=== PATIENT | female | born 1990 | race Caucasian/White ===

== ENCOUNTER 2017-01-28 16:01 | Emergency (ER) | payer OTHER ==
[~2017-01-28] VITALS: Ht 154.9 cm; Wt 60.0 kg
[~2017-01-28 16:01] MED LIST: Ambien PO; BUTALB-ACETAMI1 EAC2 PO; DOXYCYCLINE HY100 MG PO; EFFEXOR XR150 MG PO; EFFEXOR75 MG PO; ENDOCET 5-3251 EACH PO; EXCEDRIN MIGRA1 EAC3 PO; FIORCET; FLAGYL500 MG PO; FLEXERIL10 MG PO; FLOMAX0.4 MG PO; Feosol PO; IBUPROFEN800 MG PO; IRON325 MG PO; LAMICTAL100 MG PO; LaMICtal PO; MOBIC15 MG PO; MORGIDOX100 MG PO; MOTRIN800 MG PO; Motrin PO; NAPROXEN500 MG PO; NATALCARE RX1 TABLET PO; NORCO 5/3251 TABLET PO; Normodyne,Trandate PO; OXCARBAZEPINE150 MG PO; PERCOCET 5/31 TABLET PO; PHENERGAN-CODE120 ML PO; PRENATAL + DHA1 EAC1 PO; PRENATAL TABLE1 EAC3 PO; PROzac PO; REGLAN10 MG PO; SEROQUEL XR300 MG PO; Tylenol Extra Streng PO; VALIUM5 MG PO; ZANTAC150 MG PO; ZITHROMAX Z-PA250 MG PO; ZOFRAN ODT4 MG PO; ZOFRAN4 MG PO
[2017-01-28] MEDS ORDERED: KEFLEX500 MG PO (17:44)
[2017-01-28] MEDS ORDERED: ULTRAM50 MG PO (18:09)
[2017-01-28 18:19] VITALS: BP 122/85
[2017-01-29] MEDS ORDERED: NORCO 7.5/321 TABLET PO (16:38)
[2017-01-29] MEDS ORDERED: BACTRIM,SEPT1 TABLET PO (16:38)
[2017-01-29] MEDS ORDERED: MOTRIN800 MG PO (16:38)
== END 2017-01-28 18:29 | disposition home or self-care (01) ==
LOC: EME 16:01
DX: S91.312A Laceration without foreign body, left foot, initial encounter (principal); W22.8XXA Striking against or struck by other objects, initial encounter; Z23 Encounter for immunization; Z72.0 Tobacco use
CPT/HCPCS: 73630; 99281; 99284

== ENCOUNTER 2017-01-29 15:15 | Emergency (ER) | payer OTHER ==
[~2017-01-29] VITALS: Ht 154.9 cm; Wt 63.3 kg
[~2017-01-29 15:15] MED LIST changes: +KEFLEX500 MG PO; +ULTRAM50 MG PO
[2017-01-29] MEDS ORDERED: BACTRIM,SEPT1 TABLET PO (16:38)
[2017-01-29] MEDS ORDERED: NORCO 7.5/321 TABLET PO (16:38)
[2017-01-29] MEDS ORDERED: MOTRIN800 MG PO (16:38)
[2017-01-29 17:12] VITALS: BP 151/91
== END 2017-01-29 17:14 | disposition home or self-care (01) ==
LOC: EME 15:15
DX: S91.312D Laceration without foreign body, left foot, subsequent encounter (principal); L08.9 Local infection of the skin and subcutaneous tissue, unspecified; F17.200 Nicotine dependence, unspecified, uncomplicated
CPT/HCPCS: 99281; 99284

== ENCOUNTER 2017-09-10 07:14 | Emergency (ER) | payer OTHER ==
[~2017-09-10] VITALS: Ht 154.9 cm; Wt 56.0 kg
[~2017-09-10 07:14] MED LIST changes: +BACTRIM,SEPT1 TABLET PO; +NORCO 7.5/321 TABLET PO
[2017-09-10 07:56] LABS: HEMATOCRIT 33.5 % (36.0-46.0); HEMOGLOBIN 11.4 G/DL (11.9-15.5); MCH 30.4 PG (29.0-34.0); MCV 89.3 FL (83-99); PLATELET COUNT 357 K/uL (156-360); RBC DIS.WIDTH-CV 12.9 % (11.8-14.6); RBC DIS.WIDTH-SD 41.9 % (39-53); RED BLOOD COUNT 3.75 M/uL (3.80-5.20); WHITE BLOOD COUNT 11.4 K/uL (4.1-10.2)
[2017-09-10 08:03] LABS: ALBUMIN 4.3 g/dL (3.2-4.8); CHLORIDE 110 mEq/L (99-109); POTASSIUM 4.1 mEq/L (3.7-5.4); SODIUM 138 mEq/L (136-147)
[2017-09-10 08:06] LABS: GLUCOSE 97 mg/dL (70-99); TOTAL PROTEIN 7.2 g/dL (6.4-8.3)
[2017-09-10 08:08] LABS: TOTAL BILIRUBIN 0.2 mg/dL (0.0-1.0)
[2017-09-10 08:09] LABS: ALKALINE PHOSPHATASE 75 IU/L (3-129)
[2017-09-10 08:10] LABS: CREATININE 0.7 mg/dL (0.6-1.3); GFR ESTIMATE (CALCULATED) > 59 mL/min/
[2017-09-10 08:11] LABS: AST (GOT) 24 IU/L (2-34); UREA NITROGEN (BUN) 9 mg/dL (9-23)
[2017-09-10 08:12] LABS: APPEARANCE CLEAR ((CLEAR)); BILIRUBIN NEGATIVE; BLOOD NEGATIVE; COLOR YELLOW ((YELLOW)); GLUCOSE (STRIP) NEGATIVE; KETONES NEGATIVE; LEUKOCYTES NEGATIVE; NITRITE NEGATIVE; PROTEIN (STRIP) 100; SPECIFIC GRAVITY 1.018 (1.000-1.030); UROBILINOGEN 0.2 MG/DL (0.2-1.0)
[2017-09-10 08:12] LABS: ALT (GPT) 18 IU/L (3-49)
[2017-09-10 08:13] LABS: CREATINE KINASE 100 IU/L (1-294); LIPASE 21 U/L (1.0-51.0)
[2017-09-10 08:17] LABS: BACTERIA NONE SEEN /HPF; EPITHELIAL CELLS RARE /HPF; MUCUS TRACE /LPF; RED BLOOD CELLS 0-5 /HPF (0-5); WHITE BLOOD CELLS 0-5 /HPF (0-5)
[2017-09-10 08:19] LABS: QUANTITATIVE HCG < 4.0 MIU/ML
[2017-09-10 08:30] LABS: AMPHETAMINE NEGATIVE (500 ng/mL); BARBITURATES NEGATIVE (200 ng/mL); BENZODIAZEPINES NEGATIVE (150 ng/mL); BUPRENORPHINE NEGATIVE (10 ng/mL); COCAINE NEGATIVE (150 ng/mL); METHADONE NEGATIVE (200 ng/mL); METHAMPHETAMINE NEGATIVE (500 ng/mL); OPIATES (MORPHINE) NEGATIVE (100 ng/mL); OXYCODONE NEGATIVE (100 ng/mL); PHENCYCLIDINE NEGATIVE (25 ng/mL); PROPOXYPHENE NEGATIVE (300 ng/mL); THC CANNABINOIDS PRESUMPTIVE POSITIVE (50 ng/mL); TRICYCLIC ANTIDEPRESSANTS NEGATIVE (300 ng/mL)
[2017-09-10] MEDS ORDERED: ZOFRAN ODT4 MG PO (09:49)
[2017-09-10] MEDS ORDERED: FIORICET 50-301 EAC1 PO (09:49)
[2017-09-10] MEDS ORDERED: BENTYL10 MG PO (09:52)
[2017-09-10 11:39] VITALS: BP 117/84
== END 2017-09-10 11:46 | disposition home or self-care (01) ==
LOC: EME 07:14
PROVIDERS: Nurse Practitioner Family
DX: R51 Headache (principal); R10.9 Unspecified abdominal pain; J45.909 Unspecified asthma, uncomplicated; I10 Essential (primary) hypertension; F41.9 Anxiety disorder, unspecified; M41.9 Scoliosis, unspecified; F17.200 Nicotine dependence, unspecified, uncomplicated
CPT/HCPCS: 80053; 81003; 82550; 83690; 84702; 84999; 85027; 99281; 99285; J1200; J1885; J2765; J7030

== ENCOUNTER 2017-12-14 17:23 | Emergency (ER) | payer OTHER ==
[~2017-12-14] VITALS: Ht 154.9 cm; Wt 55.5 kg
[~2017-12-14 17:23] MED LIST changes: +BENTYL10 MG PO; +FIORICET 50-301 EAC1 PO
[2017-12-14 18:20] VITALS: BP 132/95
== END 2017-12-14 18:23 | disposition home or self-care (01) ==
LOC: EME 17:23
DX: R51 Headache (principal); R11.2 Nausea with vomiting, unspecified; G40.909 Epilepsy, unspecified, not intractable, without status epilepticus; J45.909 Unspecified asthma, uncomplicated; I10 Essential (primary) hypertension; F41.9 Anxiety disorder, unspecified; F31.9 Bipolar disorder, unspecified; M41.9 Scoliosis, unspecified; F17.200 Nicotine dependence, unspecified, uncomplicated
CPT/HCPCS: 81003; 99281; 99284; J1885; Q0164

== ENCOUNTER 2017-12-16 06:46 | Emergency (ER) | payer OTHER ==
[~2017-12-16] VITALS: Ht 154.9 cm; Wt 55.1 kg
[2017-12-16 07:52] LABS: BASOPHIL (%) 0.3 % (0-1); EOSINOPHIL (%) 2.5 % (0-5); EOSINOPHIL COUNT 0.2 K/uL (0-0.3); HEMATOCRIT 31.9 % (36.0-46.0); HEMOGLOBIN 10.9 G/DL (11.9-15.5); IMMATURE GRANULOCYTE (%) 0.1 % (0.0-0.7); LYMPHOCYTE COUNT 1.4 K/uL (1.0-2.8); MCH 30.3 PG (29.0-34.0); MCHC 34.2 G/DL (30.0-36.0); MCV 88.6 FL (83-99); MONOCYTE (%) 4.4 % (3-12); MONOCYTE COUNT 0.3 K/uL (0-0.8); NEUTROPHIL (%) 72.7 % (45-76); NEUTROPHIL COUNT 4.9 K/uL (1.8-6.4); PLATELET COUNT 323 K/uL (156-360); RBC DIS.WIDTH-CV 12.8 % (11.8-14.6); RBC DIS.WIDTH-SD 42.1 % (39-53); WHITE BLOOD COUNT 6.8 K/uL (4.1-10.2)
[2017-12-16 08:32] LABS: CHLORIDE 111 mEq/L (99-109); POTASSIUM 4.3 mEq/L (3.7-5.4); SODIUM 138 mEq/L (136-147)
[2017-12-16 08:34] LABS: GLUCOSE 95 mg/dL (70-99)
[2017-12-16 08:38] LABS: CREATININE 0.8 mg/dL (0.6-1.3); GFR ESTIMATE (CALCULATED) > 59 mL/min/
[2017-12-16 08:39] LABS: UREA NITROGEN (BUN) 9 mg/dL (9-23)
[2017-12-16 10:07] VITALS: BP 107/53
[2017-12-16] MEDS ORDERED: KEPPRA500 MG PO (18:45)
== END 2017-12-16 10:14 | disposition home or self-care (01) ==
LOC: EME → EDBD 06:46 → EME 06:46
PROVIDERS: Emergency Medicine
DX: G40.909 Epilepsy, unspecified, not intractable, without status epilepticus (principal); F41.9 Anxiety disorder, unspecified; I10 Essential (primary) hypertension; J45.909 Unspecified asthma, uncomplicated; M41.9 Scoliosis, unspecified; F17.200 Nicotine dependence, unspecified, uncomplicated
CPT/HCPCS: 80048; 85025; 99281; 99284

== ENCOUNTER 2017-12-16 14:53 | Emergency (ER) | payer OTHER ==
[~2017-12-16] VITALS: Ht 154.9 cm; Wt 127.0 kg
[2017-12-16 15:56] LABS: HEMATOCRIT 35.1 % (36.0-46.0); HEMOGLOBIN 12.5 G/DL (11.9-15.5); MCH 31.4 PG (29.0-34.0); MCHC 35.6 G/DL (30.0-36.0); MCV 88.2 FL (83-99); PLATELET COUNT 367 K/uL (156-360); RBC DIS.WIDTH-CV 12.9 % (11.8-14.6); RBC DIS.WIDTH-SD 42.1 % (39-53); RED BLOOD COUNT 3.98 M/uL (3.80-5.20); WHITE BLOOD COUNT 17.8 K/uL (4.1-10.2)
[2017-12-16 16:04] LABS: ALBUMIN 4.9 g/dL (3.2-4.8)
[2017-12-16 16:05] LABS: CHLORIDE 113 mEq/L (99-109); POTASSIUM 4.4 mEq/L (3.7-5.4); SODIUM 140 mEq/L (136-147)
[2017-12-16 16:07] LABS: GLUCOSE 103 mg/dL (70-99); TOTAL PROTEIN 8.4 g/dL (6.4-8.3)
[2017-12-16 16:09] LABS: TOTAL BILIRUBIN 0.5 mg/dL (0.0-1.0)
[2017-12-16 16:10] LABS: ALKALINE PHOSPHATASE 84 IU/L (3-129)
[2017-12-16 16:11] LABS: CREATININE 0.8 mg/dL (0.6-1.3); GFR ESTIMATE (CALCULATED) > 59 mL/min/
[2017-12-16 16:12] LABS: AST (GOT) 20 IU/L (2-34); UREA NITROGEN (BUN) 8 mg/dL (9-23)
[2017-12-16 16:14] LABS: ALT (GPT) 17 IU/L (3-49)
[2017-12-16 16:19] LABS: QUANTITATIVE HCG < 4.0 MIU/ML
[2017-12-16] MEDS ORDERED: KEPPRA500 MG PO (18:45)
[2017-12-16 19:24] VITALS: BP 117/80
== END 2017-12-16 19:27 | disposition home or self-care (01) ==
LOC: EME 14:53 → ENRESERV 17:00 → CANRESERV 17:00 → EME 19:27
PROVIDERS: Physician Assistant Medical
DX: G40.909 Epilepsy, unspecified, not intractable, without status epilepticus (principal); G43.909 Migraine, unspecified, not intractable, without status migrainosus; J45.909 Unspecified asthma, uncomplicated; I10 Essential (primary) hypertension; F41.9 Anxiety disorder, unspecified; M41.9 Scoliosis, unspecified; F31.9 Bipolar disorder, unspecified; F17.200 Nicotine dependence, unspecified, uncomplicated
CPT/HCPCS: 80053; 84702; 85027; 99281; 99285; J0780; J1200; J1953; J7030; J7050

== ENCOUNTER 2018-01-06 08:33 | Emergency (ER) | payer OTHER ==
[~2018-01-06] VITALS: Ht 154.9 cm; Wt 56.6 kg
[~2018-01-06 08:33] MED LIST changes: +KEPPRA500 MG PO
[2018-01-06 09:18] LABS: BASOPHIL (%) 0.7 % (0-1); BASOPHIL COUNT 0.1 K/uL (0-0.1); EOSINOPHIL (%) 3.4 % (0-5); EOSINOPHIL COUNT 0.3 K/uL (0-0.3); HEMATOCRIT 33.6 % (36.0-46.0); HEMOGLOBIN 11.5 G/DL (11.9-15.5); IMMATURE GRANULOCYTE (%) 0.2 % (0.0-0.7); LYMPHOCYTE (%) 31.1 % (15-42); LYMPHOCYTE COUNT 2.7 K/uL (1.0-2.8); MCH 30.9 PG (29.0-34.0); MCHC 34.2 G/DL (30.0-36.0); MCV 90.3 FL (83-99); MONOCYTE (%) 3.2 % (3-12); MONOCYTE COUNT 0.3 K/uL (0-0.8); NEUTROPHIL (%) 61.4 % (45-76); NEUTROPHIL COUNT 5.4 K/uL (1.8-6.4); PLATELET COUNT 324 K/uL (156-360); RBC DIS.WIDTH-CV 13.1 % (11.8-14.6); RBC DIS.WIDTH-SD 43.2 % (39-53); RED BLOOD COUNT 3.72 M/uL (3.80-5.20); WHITE BLOOD COUNT 8.8 K/uL (4.1-10.2)
[2018-01-06 09:27] LABS: CHLORIDE 111 mEq/L (99-109); POTASSIUM 4.4 mEq/L (3.7-5.4); SODIUM 139 mEq/L (136-147)
[2018-01-06 09:29] LABS: GLUCOSE 91 mg/dL (70-99)
[2018-01-06 09:33] LABS: CREATININE 0.7 mg/dL (0.6-1.3); GFR ESTIMATE (CALCULATED) > 59 mL/min/
[2018-01-06 09:34] LABS: UREA NITROGEN (BUN) 10 mg/dL (9-23)
[2018-01-06 10:23] VITALS: BP 121/68
== END 2018-01-06 10:33 | disposition home or self-care (01) ==
LOC: EME 08:33
PROVIDERS: Emergency Medicine
DX: R56.9 Unspecified convulsions (principal); I10 Essential (primary) hypertension; J45.909 Unspecified asthma, uncomplicated; M41.9 Scoliosis, unspecified; G43.909 Migraine, unspecified, not intractable, without status migrainosus; F41.9 Anxiety disorder, unspecified; F31.9 Bipolar disorder, unspecified; F17.200 Nicotine dependence, unspecified, uncomplicated
CPT/HCPCS: 80048; 85025; 99281; 99285

== ENCOUNTER 2018-02-06 11:49 | Emergency (ER) | payer OTHER ==
[~2018-02-06] VITALS: Ht 154.9 cm; Wt 53.0 kg
[2018-02-06 12:43] LABS: HEMATOCRIT 33.7 % (36.0-46.0); HEMOGLOBIN 11.5 G/DL (11.9-15.5); MCH 30.6 PG (29.0-34.0); MCHC 34.1 G/DL (30.0-36.0); MCV 89.6 FL (83-99); PLATELET COUNT 306 K/uL (156-360); RBC DIS.WIDTH-CV 12.8 % (11.8-14.6); RBC DIS.WIDTH-SD 41.9 % (39-53); RED BLOOD COUNT 3.76 M/uL (3.80-5.20); WHITE BLOOD COUNT 6.6 K/uL (4.1-10.2)
[2018-02-06 12:54] LABS: ALBUMIN 4.4 g/dL (3.2-4.8); CHLORIDE 112 mEq/L (99-109); POTASSIUM 4.1 mEq/L (3.7-5.4); SODIUM 142 mEq/L (136-147)
[2018-02-06 12:57] LABS: GLUCOSE 98 mg/dL (70-99); TOTAL PROTEIN 7.3 g/dL (6.4-8.3)
[2018-02-06 12:58] LABS: TOTAL BILIRUBIN 0.3 mg/dL (0.0-1.0)
[2018-02-06 13:00] LABS: ALKALINE PHOSPHATASE 80 IU/L (3-129); CREATININE 0.8 mg/dL (0.6-1.3); GFR ESTIMATE (CALCULATED) > 59 mL/min/
[2018-02-06 13:01] LABS: UREA NITROGEN (BUN) 8 mg/dL (9-23)
[2018-02-06 13:02] LABS: AST (GOT) 16 IU/L (2-34)
[2018-02-06 13:03] LABS: ALT (GPT) 14 IU/L (3-49)
[2018-02-06 13:09] LABS: QUANTITATIVE HCG < 4.0 MIU/ML
[2018-02-06 13:42] LABS: APPEARANCE CLOUDY ((CLEAR)); BILIRUBIN NEGATIVE; BLOOD NEGATIVE; COLOR YELLOW ((YELLOW)); GLUCOSE (STRIP) NEGATIVE; KETONES NEGATIVE; LEUKOCYTES TRACE; NITRITE NEGATIVE; PROTEIN (STRIP) NEGATIVE; SPECIFIC GRAVITY 1.016 (1.000-1.030); UROBILINOGEN 0.2 MG/DL (0.2-1.0)
[2018-02-06 13:43] LABS: LIPASE 18 U/L (1.0-51.0)
[2018-02-06 13:54] LABS: BACTERIA NONE SEEN /HPF; EPITHELIAL CELLS RARE /HPF; MUCUS TRACE /LPF; RED BLOOD CELLS 0-5 /HPF (0-5); UCUL ADDED? NO; WHITE BLOOD CELLS 0-5 /HPF (0-5)
[2018-02-06] MEDS ORDERED: MOTRIN600 MG PO (16:01)
[2018-02-06] MEDS ORDERED: ZOFRAN4 MG PO (16:01)
[2018-02-06 16:54] VITALS: BP 148/76
== END 2018-02-06 16:58 | disposition home or self-care (01) ==
LOC: EME 11:49
DX: R10.31 Right lower quadrant pain (principal); N83.201 Unspecified ovarian cyst, right side; K76.0 Fatty (change of) liver, not elsewhere classified; R11.2 Nausea with vomiting, unspecified; F17.200 Nicotine dependence, unspecified, uncomplicated
CPT/HCPCS: 74177; 80053; 81003; 83690; 84702; 85027; 99281; 99284; J0500; J1885; J2405; J7030

== ENCOUNTER 2018-02-21 00:19 | Inpatient (IN) | payer OTHER ==
[~2018-02-21] VITALS: Ht 154.9 cm; Wt 56.3 kg
[~2018-02-21 00:19] MED LIST changes: +MOTRIN600 MG PO
[2018-02-21 02:10] LABS: HEMATOCRIT 36.2 % (36.0-46.0); HEMOGLOBIN 12.5 G/DL (11.9-15.5); MCH 31.1 PG (29.0-34.0); MCHC 34.5 G/DL (30.0-36.0); PLATELET COUNT 341 K/uL (156-360); RBC DIS.WIDTH-CV 12.6 % (11.8-14.6); RBC DIS.WIDTH-SD 41.7 % (39-53); RED BLOOD COUNT 4.02 M/uL (3.80-5.20); WHITE BLOOD COUNT 8.2 K/uL (4.1-10.2)
[2018-02-21 02:18] LABS: CHLORIDE 109 mEq/L (99-109); SODIUM 142 mEq/L (136-147)
[2018-02-21 02:20] LABS: GLUCOSE 76 mg/dL (70-99)
[2018-02-21 02:23] LABS: SERUM ETHYL ALCOHOL < 10 mg/dL
[2018-02-21 02:24] LABS: CREATININE 0.9 mg/dL (0.6-1.3); GFR ESTIMATE (CALCULATED) > 59 mL/min/
[2018-02-21 02:25] LABS: UREA NITROGEN (BUN) 10 mg/dL (9-23)
[2018-02-21 04:30] LABS: AMPHETAMINE NEGATIVE (500 ng/mL); BARBITURATES NEGATIVE (200 ng/mL); BENZODIAZEPINES NEGATIVE (150 ng/mL); BUPRENORPHINE NEGATIVE (10 ng/mL); COCAINE NEGATIVE (150 ng/mL); METHADONE NEGATIVE (200 ng/mL); METHAMPHETAMINE NEGATIVE (500 ng/mL); OPIATES (MORPHINE) NEGATIVE (100 ng/mL); OXYCODONE NEGATIVE (100 ng/mL); PHENCYCLIDINE NEGATIVE (25 ng/mL); PROPOXYPHENE NEGATIVE (300 ng/mL); THC CANNABINOIDS PRESUMPTIVE POSITIVE (50 ng/mL); TRICYCLIC ANTIDEPRESSANTS NEGATIVE (300 ng/mL)
[2018-02-21] MEDS ORDERED: PROMETHAZINE HC25 M1 PO (05:26)
[2018-02-21] MEDS ORDERED: TOPIRAMATE25 MG PO (05:28)
[2018-02-21 06:40] VITALS: BP 107/78
[2018-02-21 10:57] VITALS: BP 103/66
[2018-02-21 14:57] VITALS: BP 107/64
[2018-02-21 20:00] VITALS: BP 120/83
[2018-02-22] VITALS: BP 127/61
[2018-02-22 04:00] VITALS: BP 102/76
[2018-02-22 07:08] VITALS: BP 109/68
[2018-02-22 11:04] VITALS: BP 139/78
[2018-02-22 15:03] VITALS: BP 164/91
[2018-02-22] MEDS ORDERED: VIMPAT150 MG PO (15:13)
[2018-02-22] MEDS ORDERED: KEPPRA500 MG PO (15:52)
== END 2018-02-22 15:51 | disposition home or self-care (01) | DRG 101 ==
LOC: EME 00:19 → 5SOUTH 04:46 → EDOF 04:46 → ENRESERV 04:49 → 5SOUTH 06:15
PROVIDERS: Emergency Medicine
DX: G40.419 Other generalized epilepsy and epileptic syndromes, intractable, without status epilepticus (principal); Z91.14 Patient's other noncompliance with medication regimen; F31.9 Bipolar disorder, unspecified; M41.9 Scoliosis, unspecified; J45.909 Unspecified asthma, uncomplicated; I10 Essential (primary) hypertension; G43.909 Migraine, unspecified, not intractable, without status migrainosus; F41.9 Anxiety disorder, unspecified; F17.200 Nicotine dependence, unspecified, uncomplicated; F12.90 Cannabis use, unspecified, uncomplicated
CPT/HCPCS: 70450; 80048; 80175 90; 84999; 85027; 93005; 99281; 99285; G0480; J1953; J2060; J7030; J7050

== ENCOUNTER 2018-02-26 09:20 | Emergency (ER) | payer OTHER ==
[~2018-02-26] VITALS: Ht 160 cm; Wt 52.4 kg
[~2018-02-26 09:20] MED LIST changes: +PROMETHAZINE HC25 M1 PO; +TOPIRAMATE25 MG PO; +VIMPAT150 MG PO
[2018-02-26 09:43] LABS: HEMATOCRIT 37.9 % (36.0-46.0); HEMOGLOBIN 13.3 G/DL (11.9-15.5); MCH 30.7 PG (29.0-34.0); MCHC 35.1 G/DL (30.0-36.0); MCV 87.5 FL (83-99); PLATELET COUNT 393 K/uL (156-360); RBC DIS.WIDTH-CV 12.5 % (11.8-14.6); RBC DIS.WIDTH-SD 40.4 % (39-53); RED BLOOD COUNT 4.33 M/uL (3.80-5.20); WHITE BLOOD COUNT 7.4 K/uL (4.1-10.2)
[2018-02-26 09:54] LABS: CHLORIDE 109 mEq/L (99-109); SODIUM 140 mEq/L (136-147)
[2018-02-26 09:56] LABS: GLUCOSE 115 mg/dL (70-99)
[2018-02-26 09:59] LABS: SERUM ETHYL ALCOHOL < 10 mg/dL
[2018-02-26 10:00] LABS: CREATININE 0.8 mg/dL (0.6-1.3); GFR ESTIMATE (CALCULATED) > 59 mL/min/
[2018-02-26 10:01] LABS: UREA NITROGEN (BUN) 13 mg/dL (9-23)
[2018-02-26 12:01] LABS: AMPHETAMINE NEGATIVE (500 ng/mL); BARBITURATES NEGATIVE (200 ng/mL); BENZODIAZEPINES NEGATIVE (150 ng/mL); BUPRENORPHINE NEGATIVE (10 ng/mL); COCAINE NEGATIVE (150 ng/mL); METHADONE NEGATIVE (200 ng/mL); METHAMPHETAMINE NEGATIVE (500 ng/mL); OPIATES (MORPHINE) NEGATIVE (100 ng/mL); OXYCODONE NEGATIVE (100 ng/mL); PHENCYCLIDINE NEGATIVE (25 ng/mL); PROPOXYPHENE NEGATIVE (300 ng/mL); THC CANNABINOIDS PRESUMPTIVE POSITIVE (50 ng/mL); TRICYCLIC ANTIDEPRESSANTS NEGATIVE (300 ng/mL)
[2018-02-26 13:00] VITALS: BP 105/74
== END 2018-02-26 15:24 | disposition home or self-care (01) ==
LOC: EME 09:20
PROVIDERS: Emergency Medicine
DX: G40.909 Epilepsy, unspecified, not intractable, without status epilepticus (principal); I10 Essential (primary) hypertension; J45.909 Unspecified asthma, uncomplicated; F32.9 Major depressive disorder, single episode, unspecified; F31.9 Bipolar disorder, unspecified; F41.9 Anxiety disorder, unspecified; G43.909 Migraine, unspecified, not intractable, without status migrainosus; M41.9 Scoliosis, unspecified; F17.200 Nicotine dependence, unspecified, uncomplicated; Z87.442 Personal history of urinary calculi
CPT/HCPCS: 80048; 84999; 85027; 99281; 99284; G0480; J1630; J7030

== ENCOUNTER 2018-03-18 14:47 | Emergency (ER) | payer OTHER ==
[~2018-03-18] VITALS: Ht 154.9 cm; Wt 51.3 kg
[2018-03-18 15:50] LABS: BASOPHIL (%) 0.5 % (0-1); EOSINOPHIL (%) 1.1 % (0-5); EOSINOPHIL COUNT 0.1 K/uL (0-0.3); HEMATOCRIT 38.4 % (36.0-46.0); HEMOGLOBIN 13.2 G/DL (11.9-15.5); IMMATURE GRANULOCYTE (%) 0.3 % (0.0-0.7); LYMPHOCYTE (%) 25.7 % (15-42); LYMPHOCYTE COUNT 2.1 K/uL (1.0-2.8); MCH 30.5 PG (29.0-34.0); MCHC 34.4 G/DL (30.0-36.0); MCV 88.7 FL (83-99); MONOCYTE (%) 3.5 % (3-12); MONOCYTE COUNT 0.3 K/uL (0-0.8); NEUTROPHIL (%) 68.9 % (45-76); NEUTROPHIL COUNT 5.5 K/uL (1.8-6.4); PLATELET COUNT 403 K/uL (156-360); RBC DIS.WIDTH-CV 12.6 % (11.8-14.6); RBC DIS.WIDTH-SD 41.1 % (39-53); RED BLOOD COUNT 4.33 M/uL (3.80-5.20)
[2018-03-18 16:05] LABS: CHLORIDE 112 mEq/L (99-109); POTASSIUM 5.3 mEq/L (3.7-5.4); SODIUM 141 mEq/L (136-147)
[2018-03-18 16:07] LABS: GLUCOSE 94 mg/dL (70-99)
[2018-03-18 16:10] LABS: CREATININE 0.8 mg/dL (0.6-1.3); GFR ESTIMATE (CALCULATED) > 59 mL/min/
[2018-03-18 16:11] LABS: UREA NITROGEN (BUN) 8 mg/dL (9-23)
[2018-03-18 16:38] LABS: QUANTITATIVE HCG < 4.0 MIU/ML
[2018-03-18 17:35] LABS: APPEARANCE CLOUDY ((CLEAR)); BILIRUBIN NEGATIVE; BLOOD SMALL; COLOR YELLOW ((YELLOW)); GLUCOSE (STRIP) NEGATIVE; KETONES 5; LEUKOCYTES LARGE; NITRITE NEGATIVE; PROTEIN (STRIP) 30; SPECIFIC GRAVITY 1.015 (1.000-1.030); UROBILINOGEN 0.2 MG/DL (0.2-1.0)
[2018-03-18 17:51] LABS: AMPHETAMINE NEGATIVE (500 ng/mL); BARBITURATES NEGATIVE (200 ng/mL); BENZODIAZEPINES NEGATIVE (150 ng/mL); BUPRENORPHINE NEGATIVE (10 ng/mL); COCAINE NEGATIVE (150 ng/mL); METHADONE NEGATIVE (200 ng/mL); METHAMPHETAMINE NEGATIVE (500 ng/mL); OPIATES (MORPHINE) NEGATIVE (100 ng/mL); OXYCODONE NEGATIVE (100 ng/mL); PHENCYCLIDINE NEGATIVE (25 ng/mL); PROPOXYPHENE NEGATIVE (300 ng/mL); THC CANNABINOIDS PRESUMPTIVE POSITIVE (50 ng/mL); TRICYCLIC ANTIDEPRESSANTS NEGATIVE (300 ng/mL)
[2018-03-18 18:35] LABS: EPITHELIAL CELLS 1+ /HPF; RED BLOOD CELLS RARE /HPF (0-5); WHITE BLOOD CELLS 20-30 /HPF (0-5)
[2018-03-18 18:36] LABS: BACTERIA 1+ /HPF; MUCUS 1+ /LPF; UCUL ADDED? YES
[2018-03-18 19:33] VITALS: BP 113/69
== END 2018-03-18 19:40 | disposition home or self-care (01) ==
LOC: EME 14:47
PROVIDERS: Emergency Medicine
DX: G40.909 Epilepsy, unspecified, not intractable, without status epilepticus (principal); I10 Essential (primary) hypertension; F32.9 Major depressive disorder, single episode, unspecified; F41.9 Anxiety disorder, unspecified; J45.909 Unspecified asthma, uncomplicated; F17.200 Nicotine dependence, unspecified, uncomplicated
CPT/HCPCS: 70450; 80048; 81003; 84702; 84999; 85025; 87086; 99281; 99285; G0480; J1953; J7050